=== PATIENT | female | born 1940 | race Caucasian/White ===

== ENCOUNTER → 2019-05-24 | Outpatient (REF) | payer OTHER ==
[~2019-05-24] MED LIST: ASPI81TA45; BONIVA; CALC600T10; ECHINACEA; FISHCAP; NEXI1CAP3; VICO5TAB; VITAMIN D; XANA0.5T
[2019-05-24 18:05] LABS: PLATELET COUNT, AUTOMATED 121 10^3/uL (150-450)
[2019-05-24 18:08] LABS: INR 1.02; PROTHROMBIN TIME 13.1 SECONDS (11.8-14.0)
[2019-05-24 18:09] LABS: PARTIAL THROMBOPLASTIN TIME 28.3 SECONDS (25.0-38.4)
== END ==
LOC: M LABDRAW1 17:06
PROVIDERS: ATTEND Physician Assistant
DX: M47.27 Other spondylosis with radiculopathy, lumbosacral region (principal); Z01.812 Encounter for preprocedural laboratory examination